=== PATIENT | female | born 2005 | race Two or more races ===

== ENCOUNTER 2023-02-01 21:33 | Emergency (ER) | payer OTHER, MEDICAID ==
[~2023-02-01] VITALS: Ht 172.7 cm; Wt 84.0 kg
[2023-02-01 21:50] VITALS: BP 110/69; PULSE 106; RESP 14; O2SAT 99
[2023-02-01] MEDS ORDERED: ALPRAZolam 0.5 MG TAB PO ONE (22:30)
[2023-02-01 22:51] LABS: Basophils # (auto) 0 10 ^3/uL (0-0.2); Basophils % (auto) 0.2 % (0.0-2.0); Eosinophils # (auto) 0 10 ^3/uL (0-0.8); Eosinophils % (auto) 0.2 % (0.0-7.0); Hematocrit 46.9 % (36.0-46.0); Hemoglobin 15.8 g/dL (12.2-16.2); Lymphocytes # (auto) 2.1 10 ^3/uL (0.4-5.4); Lymphocytes % (auto) 16.8 % (10.0-50.0); Mean Corpuscular Hemoglobin 28.6 pg (28.0-32.0); Mean Corpuscular Hgb Conc. 33.7 g/dL (32.0-36.0); Mean Corpuscular Volume 85.1 fL (80.0-100.0); Monocytes # (auto) 0.8 10 ^3/uL (0-1.3); Monocytes % (auto) 6.2 % (0.0-12.0); Neutrophils # (auto) 9.5 10 ^3/uL (1.6-8.6); Neutrophils % (auto) 76.6 % (37.0-80.0); Nucleated Red Blood Cells % 0.2 %; Red Blood Cells 5.52 10^6/uL (4.0-5.20); Red Cell Distribution Width 14.6 % (11.8-14.3); White Blood Cell 12.4 10^3/uL (4.4-10.8)
[2023-02-01 23:06] LABS: Urine Bacteria NONE SEEN /hpf (None Seen); Urine Blood TRACE /uL (Negative); Urine Clarity HAZY (Clear); Urine Color Yellow (Yellow); Urine Hyaline Cast FEW /lpf (0 - 2); Urine Protein, UAD 1+ (Negative); Urine Specific Gravity 1.032 (1.001-1.035); Urine Urobilinogen Normal (Negative); Urine WBC 197 /hpf (0 - 5); Urine pH 6.5 (5.0-8.0)
[2023-02-01 23:24] LABS: Amphetamine Screen, Urine Neg (NEGATIVE); Barbiturate Scree,Urine Neg (NEGATIVE); Benzodiazephine Screen, Urine Neg (NEGATIVE); Cannabinoid Screen, Urine Pos (NEGATIVE); Cocaine Screen, Urine Neg (NEGATIVE); Opiate Scree,Urine Neg (NEGATIVE); Phencyclidine Screen, Urine Neg (NEGATIVE)
[2023-02-01 23:29] LABS: Alanine Aminotransferase 22 U/L (7-40); Albumin 5.1 g/dL (3.2-4.8); Alkaline Phosphatase 90 U/L (46-116); Anion Gap 8 (5-15); Aspartate Aminotransferase 17 U/L (13-40); Bilirubin, Total 0.5 mg/dL (0.2-1.0); Blood Urea Nitrogen 10 mg/dL (9-23); Calcium 10.1 mg/dL (8.7-10.4); Carbon Dioxide 24 mmol/L (20-30); Chloride 104 mmol/L (98-107); Glucose 90 mg/dL (74-106); Lipase 44 U/L (12-53); Potassium 3.8 mmol/L (3.5-5.1); Sodium 136 mmol/L (136-145); Total Protein 8.6 g/dL (5.7-8.2)
[2023-02-02 01:42] LABS: Blood Alcohol < 3.0 mg/dL (<10)
== END 2023-02-02 00:09 | disposition left against medical advice (07) ==
LOC: EDBD 21:33 → ER 21:33
DX: T14.91XA Suicide attempt, initial encounter (principal); F41.9 Anxiety disorder, unspecified; F32.9 Major depressive disorder, single episode, unspecified
CPT/HCPCS: 36415; 80053; 80307; 80320; 81001; 81025; 83690; 83880; 85025

== ENCOUNTER 2023-07-16 06:16 | Emergency (ER) | payer OTHER, MEDICAID ==
[~2023-07-16] VITALS: Ht 160 cm; Wt 97.9 kg
[2023-07-16 07:26] LABS: Basophils # (auto) 0.1 10 ^3/uL (0-0.2); Basophils % (auto) 0.3 % (0.0-2.0); Eosinophils # (auto) 0 10 ^3/uL (0-0.8); Eosinophils % (auto) 0.1 % (0.0-7.0); Hematocrit 49.1 % (36.0-46.0); Hemoglobin 16.4 g/dL (12.2-16.2); Lymphocytes % (auto) 11.9 % (10.0-50.0); Mean Corpuscular Hemoglobin 28.6 pg (28.0-32.0); Mean Corpuscular Hgb Conc. 33.5 g/dL (32.0-36.0); Mean Corpuscular Volume 85.6 fL (80.0-100.0); Monocytes % (auto) 5.8 % (0.0-12.0); Neutrophils # (auto) 13.6 10 ^3/uL (1.6-8.6); Neutrophils % (auto) 81.9 % (37.0-80.0); Red Blood Cells 5.73 10^6/uL (4.0-5.20); Red Cell Distribution Width 14.1 % (11.8-14.3); White Blood Cell 16.6 10^3/uL (4.4-10.8)
[2023-07-16 07:33] LABS: Urine Bacteria FEW /hpf (None Seen); Urine Blood TRACE /uL (Negative); Urine Clarity HAZY (Clear); Urine Color Yellow (Yellow); Urine Mucus FEW (None Seen); Urine Protein, UAD 2+ (Negative); Urine Specific Gravity 1.034 (1.001-1.035); Urine Urobilinogen Normal (Negative); Urine WBC 92 /hpf (0 - 5); Urine pH 6.5 (5.0-9.0)
[2023-07-16 07:38] LABS: Chloride 100 mmol/L (98-107); Potassium 3.2 mmol/L (3.5-5.1); Sodium 135 mmol/L (136-145)
[2023-07-16 07:39] LABS: Anion Gap 8 (5-15); Calcium 10.2 mg/dL (8.5-10.1); Carbon Dioxide 27 mmol/L (20-30)
[2023-07-16 07:44] LABS: BUN/Creatinine Ratio 11.7 (10.0-20.0); Blood Urea Nitrogen 9 mg/dL (9-23); Glucose 89 mg/dL (74-106)
[2023-07-16] MEDS: PROCHLORPERAZINE EDISYLATE 5 MG/ML 2ML VIAL IV ONE (08:11)
[2023-07-16] MEDS: PANTOPRAZOLE 40 MG/10 ML VIAL INJ IV ONE (08:11)
[2023-07-16] MEDS: SODIUM CHLORIDE 0.9% 1,000 ML IVB ONE (08:11)
[2023-07-16] MEDS: MORPHINE SULFATE 4 MG/ML SYR/VIAL IV ONE (08:12)
[2023-07-16] MEDS ORDERED: CIPR-173 PO (08:26)
[2023-07-16] MEDS ORDERED: ZOFR4T PO (08:26)
[2023-07-16] MEDS: cefTRIAXone 1GM/50ML D5W 50 ML IV ONE (08:43)
[2023-07-16 09:45] VITALS: BP 122/80; PULSE 75; RESP 18; TEMP 99.1; O2SAT 100
[2023-07-20] MEDS ORDERED: OMEP-434 PO (12:15)
[2023-07-20] MEDS ORDERED: METO-281 PO (12:15)
== END 2023-07-16 09:44 | disposition home or self-care (01) ==
LOC: ER 06:16
DX: N39.0 Urinary tract infection, site not specified (principal); R10.2 Pelvic and perineal pain; F12.90 Cannabis use, unspecified, uncomplicated; R11.2 Nausea with vomiting, unspecified; F41.9 Anxiety disorder, unspecified; F32.9 Major depressive disorder, single episode, unspecified; F15.90 Other stimulant use, unspecified, uncomplicated; Z79.899 Other long term (current) drug therapy
CPT/HCPCS: 36415; 80048; 81001; 84702; 85025; 96361; 96365; 96375; 99284; C9113; J0696; J0780; J2270; J7030